=== PATIENT | female | born 1995 | race Caucasian/White ===

== ENCOUNTER 2019-01-13 16:06 | Emergency (ER) | payer SELFPAY ==
[~2019-01-13] VITALS: Ht 167.6 cm; Wt 43.8 kg
[2019-01-13 16:08] VITALS: Ht 167.6 cm; Wt 43.8 kg
[2019-01-13] MEDS ORDERED: ACETAMINOPHEN 325 MG TAB PO ONE (17:00)
[2019-01-13 17:34] VITALS: BP 118/64; PULSE 68; RESP 16
--- NOTE | 2019-01-14 12:46 | ERD ---
ER Documentation Chief Complaint Chief Complaint lower abdominal pain/cramping and vaginal bleeding HPI 23-year-old previously healthy female presents to the emergency department complaining of intermittent vaginal bleeding for the past 6 days. She typically gets a normal period which lasts around 28 days. Her last menstrual cycle was 2 weeks ago. She reports suprapubic cramping type pain which is rated 6/10 in severity. She denies any fevers or chills or dysuria or abdominal pain or other symptoms at this time. ROS All systems reviewed and are negative except as per history of present illness. Allergies Allergies: Coded Allergies: No Known Allergy (Unverified , 01/13/19) PMhx/Soc Medical and Surgical Hx: pt denies Medical Hx, pt denies Surgical Hx Hx Alcohol Use: No Hx Substance Use: No Hx Tobacco Use: No Smoking Status: Never smoker FmHx Family History: No diabetes Physical Exam Vitals Vital Signs Date Temp Pulse Resp B/P (MAP) Pulse Ox O2 O2 Flow FiO2 Time Delivery Rate 01/13/19 98.9 68 16 118/64 98 Room Air 17:34 (82) 01/13/19 99.4 72 18 119/64 98 16:08 (82) Physical Exam Const: No acute distress Head: Atraumatic Eyes: Normal Conjunctiva ENT: Normal External Ears, Nose and Mouth. Neck: Full range of motion. No meningismus. Resp: Clear to auscultation bilaterally Cardio: Regular rate and rhythm, no murmurs Abd: Soft, non tender, non distended. Normal bowel sounds. No rebound tenderness or guarding. No McBurney's point tenderness. No suprapubic tenderness. Skin: No petechiae or rashes Back: No midline or flank tenderness Ext: No cyanosis, or edema Neur: Awake and alert Psych: Normal Mood and Affect Result Diagram: 01/13/19 1640 01/13/19 1640 Results 24 hrs Laboratory Tests Test 01/13/19 16:39 01/13/19 16:40 01/13/19 17:15 Urine Color YELLOW Urine Clarity CLEAR Urine pH 7.0 Urine Specific [place] 1.016 Urine Ketones NEGATIVE mg/dL Urine Nitrite NEGATIVE mg/dL Urine Bilirubin NEGATIVE mg/dL Urine Urobilinogen NEGATIVE mg/dL Urine Leukocyte Esterase NEGATIVE Christen/ul Urine Microscopic RBC 14 /HPF Urine Microscopic WBC 3 /HPF Urine Mucus FEW /HPF Urine Hemoglobin 3+ mg/dL Urine Glucose NEGATIVE mg/dL Urine Total Protein NEGATIVE mg/dl White Blood Count 6.2 10^3/ul Red Blood Count 4.77 10^6/ul Hemoglobin 13.1 g/dl Hematocrit 40.3 % Mean Corpuscular Volume 84.5 fl Mean Corpuscular Hemoglobin 27.5 pg Mean Corpuscular 32.5 g/dl Hemoglobin Concent Red Cell Distribution Width 12.8 % Platelet Count 268 10^3/UL Mean Platelet Volume 9.7 fl Immature Granulocytes % 0.300 % Neutrophils % 54.9 % Lymphocytes % 35.8 % Monocytes % 6.3 % Eosinophils % 2.1 % Basophils % 0.6 % Nucleated Red Blood Cells % 0.0 /100WBC Immature Granulocytes # 0.020 10^3/ul Neutrophils # 3.4 10^3/ul Lymphocytes # 2.2 10^3/ul Monocytes # 0.4 10^3/ul Eosinophils # 0.1 10^3/ul Basophils # 0.0 10^3/ul Nucleated Red Blood Cells # 0.0 10^3/ul Sodium Level 143 mmol/L Potassium Level 4.1 mmol/L Chloride Level 107 mmol/L Carbon Dioxide Level 25 mmol/L Anion Gap 11 Blood Urea Nitrogen 6 mg/dl Creatinine 0.80 mg/dl Est Glomerular Filtrat > 60 mL/min Rate mL/min Glucose Level 89 mg/dl Calcium Level 9.7 mg/dl POC Beta HCG, Qualitative NEGATIVE Current Medications Medications Dose Sig/Rosa Start Time Status Last (Trade) Ordered Route PRN Stop Time Admin Dose Reason Admin 650 mg ONCE ONCE 01/13/19 DC 01/13/19 Acetaminophen PO 17:00 01/13/19 16:41 (Tylenol 17:01 Tab) [place] [address] Radiology Main Line: [phone] DIAGNOSTIC IMAGING REPORT Patient: ANTONY NICOLE : 02/01/1985 Age: 33 Sex: F MR #: [id number] DOS: 01/13/19 1853 Ordering MD: NAN OWEN PA-C Location: [facility] Room/Bed: PROCEDURE: US Obstetrical 1st Trimester CLINICAL INDICATION: with right-sided pelvic pain TECHNIQUE: Multiple real-time images were acquired of the patient's maternal abdomen utilizing a curved array transducer. COMPARISON: None FINDINGS: The uterus is anteverted and normal in size measuring . There is a well implanted gestational sac within the fundus of the uterus with a mean sac diameter of 2.10 cm which corresponds to a gestational sac age of 6 weeks 6 days. A yolk sac is identified. There is a single pole with a crown-rump length of 0.52 cm which corresponds to a gestational age of 6 weeks 2 days plus or minus 3 days. There is positive cardiac activity being at 124 beats per minute. The right ovary measures 3.2 x 2.5 x 2.0 cm and appears normal. The left ovary measures 2.8 x 2.1 x 1.4 cm and appears normal. Vascular flow is demonstrated in each ovary on Doppler. No adnexal mass or free fluid is identified IMPRESSION: 1. Single live intrauterine fetus which by ultrasound corresponds to a gestational age of 6 weeks 4 days plus or minus 3 days. The estimated date of delivery based on today's sonogram is 09/04/2019. 2. The heart rate is 124 bpm. 3. Normal appearing ovaries with each demonstrating vascular flow on Doppler. 4. No adnexal mass or free fluid is evident. Physician Mara Date Time Electronically viewed and signed by Physician Mara on 01/13/2019 19:53 RH/ CC: NAN OWEN PA-C [id number] Procedures/MDM This is a 23-year-old female presents to the emergency department complaining of intermittent vaginal bleeding. CBC showed no evidence of significant leukocytosis or anemia. There is no tenderness palpation suprapubic region or the abdomen. Urinalysis is not concerning for urinary tract infection. Patient was administered Tylenol in the department with improvement of her pain. Sound of the pelvis revealed heterogeneous uterus with a small posterior intramural fibroid. There was Doppler flow to bilateral ovaries. I have low suspicion for tubo-ovarian abscess, ovarian torsion, ectopic , PID, sepsis, acute mendez rgical abdomen, or other emergent process. Patient will be discharged home in stable condition with instructions to follow-up with her [facility] physician within the next 24 to 48 hours and return here immediately for any new or concerning symptoms. The patient understood and agreed with the diagnosis, plan company for follow-up, return precautions. Departure Diagnosis: Primary Impression: Intramural uterine fibroid Condition: Fair Patient Instructions: Uterine Fibroids Referrals: [facility] [place] [address] [facility] [address] [place] [address] OFFICE FAX , [facility] [address] [place] [address] [address] [place]PAIN LOM[address] [address] [place] [address] [address], [facility] [address] [facility], [facility] [address], [facility] [address] [facility] [address] [place] [address] [facility] [address] [place] [address] [phone] [facility] [address] - [place] [address] [facility]. [address], [facility] [address] [address], [place] [address] [facility]. [address], [facility] [address] [address] [address] [place], [place] [id number] Additional Instructions: SPECIALIST: YOU HAVE A MEDICAL CONDITION WHICH REQUIRES YOU TO SEE A SPEC IALIST WITHIN THE NEXT 1-2 DAYS. PLEASE FOLLOW UP WITH YOUR PRIMARY PHYSICIAN FOR REFFERAL.IF YOU DO NOT HAVE A PRIMARY CARE PHYSICIAN AND/OR YOU CAN NOT AFFORD TO SEE A PHYSICIAN THE FOLLOWING RESOURCES HAVE BEEN SUPPLIED TO YOU. IT IS YOUR RESPONSIBILITY TO BE SEEN BY THE SPECIALIST: NAN SALAS PA-C Jan 14, 2019 12:46
== END 2019-01-13 17:35 | disposition home or self-care (01) ==
LOC: FTE 16:06
DX: D25.1 Intramural leiomyoma of uterus (principal)
CPT/HCPCS: 36415; 76830; 76856; 80048; 81001; 81025; 85025; 87086

== ENCOUNTER 2019-04-14 10:48 | Emergency (ER) | payer OTHER ==
[~2019-04-14] VITALS: Ht 165.1 cm; Wt 43.2 kg
[2019-04-14 11:09] VITALS: BP 6/69; PULSE 82; RESP 22; Ht 165.1 cm; Wt 43.2 kg
== END 2019-04-14 14:03 | disposition home or self-care (01) ==
LOC: FTE 10:48
DX: Z71.1 Person with feared health complaint in whom no diagnosis is made (principal)
CPT/HCPCS: 81003; 81025; 87591; 99282